=== PATIENT | female | born 1955 | race Two or more races ===

== ENCOUNTER 2023-02-12 12:09 | Emergency (ER) | payer OTHER ==
[~2023-02-12] VITALS: Ht 167.6 cm; Wt 95.4 kg
[~2023-02-12 12:09] MED LIST: AMIT10TA10 PO; ATE50T PO; IBUP-1454 PO; LOVA20TA4 PO; OMEP20CA74 PO; OXYM0.0594; TRAM50TA2 PO
[2023-02-12] MEDS ORDERED: SODIUM CHLORIDE 0.9% 1,000 ML IV ONE ×2 (12:45)
[2023-02-12 13:52] LABS: Hematocrit 45.6 % (36.0-46.0); Mean Corpuscular Hgb Conc. 32.9 g/dL (32.0-36.0); Mean Corpuscular Volume 88.2 fL (80.0-100.0); Red Blood Cells 5.17 10^6/uL (4.0-5.20); White Blood Cell 20.3 10^3/uL (4.4-10.8)
[2023-02-12 14:02] LABS: Basophils % (manual) 0 (0.0-2.0); Blast Cells 0; Eosinophils % (manual) 0 (0-7); Myelocytes % 0; Promyelocytes % 0; Reactive Lymphocytes 0
[2023-02-12 14:08] LABS: Alanine Aminotransferase 52 U/L (7-40); Albumin 4.4 g/dL (3.2-4.8); Alkaline Phosphatase 154 U/L (46-116); Anion Gap 10 (5-15); Aspartate Aminotransferase 37 U/L (13-40); BUN/Creatinine Ratio 18.2 (10.0-20.0); Bilirubin, Total 0.6 mg/dL (0.2-1.0); Blood Urea Nitrogen 16 mg/dL (9-23); Calcium 9.6 mg/dL (8.5-10.1); Carbon Dioxide 22 mmol/L (20-30); Chloride 108 mmol/L (98-107); Glucose 129 mg/dL (74-106); Potassium 4.6 mmol/L (3.5-5.1); Sodium 140 mmol/L (136-145); Total Protein 6.6 g/dL (5.7-8.2)
[2023-02-12 14:47] LABS: Band Neutrophils % (manual) 18; Lymphocytes % (manual) 1 (10.0-50.0); Metamyelocytes % 1; Monocytes % (manual) 11 (0-12); Platelet Estimate Adequate
[2023-02-12] MEDS ORDERED: levoFLOXacin 500MG 100 ML IV ONE (15:00)
[2023-02-12] MEDS ORDERED: metroNIDAZOLE 500MG/100ML 100 ML IV ONE (15:00)
[2023-02-12] MEDS ORDERED: ONDANSETRON HCL 4 MG/2 ML VIAL IV ONE (17:15)
[2023-02-12 19:56] VITALS: BP 102/42; PULSE 106; RESP 18; TEMP 98; O2SAT 94
[2023-02-12 21:22] LABS: Respiratory Syncytial Virus Ag Negative
[2023-02-12 21:23] LABS: COVID19 ANTIGEN SOFIA FIA NEGATIVE (NEGATIVE); Rapid Influenza A Negative (Negative); Rapid Influenza B Negative (Negative)
== END 2023-02-12 16:00 | disposition admitted as inpatient to this hospital (09) ==
LOC: EDBD 12:09 → ER 12:09
DX: K52.9 Noninfective gastroenteritis and colitis, unspecified (principal); R53.1 Weakness; E78.5 Hyperlipidemia, unspecified; Z98.890 Other specified postprocedural states; Z20.822 Contact with and (suspected) exposure to COVID-19
CPT/HCPCS: 36415; 74176; 80053; 83605; 84484; 85007; 85027; 87040; 87426; 87804; 87807; 93005; 96360; 99285; J7030